=== PATIENT | female | born 1990 | race American Indian/Alaskan Native ===

== ENCOUNTER 2016-05-27 12:05 | Emergency (ER) | payer SELFPAY ==
--- NOTE | 2016-05-27 12:52 | Emergency Department Report ---
ED ENT HPI - General Chief complaint: Sore Throat Stated complaint: SORE THROAT Time Seen by Provider: 05/27/16 12:42 Source: patient Mode of arrival: Ambulatory Limitations: No Limitations - History of Present Illness MD complaint: tooth pain, ear pain, difficulty swallowing -: Gradual (today) Location: L ear, throat Severity: moderate Severity scale (0 -10): 4 Quality: burning Worsens with: swallowing Associated Symptoms: fever, pain with swallowing, sore throat, other (nausea) - Related Data Home Medications Medication Instructions Recorded Confirmed Last Taken No Known Home Medications [No 08/20/15 08/20/15 Unknown Reported Home Medications] Allergies Allergy/AdvReac Type Severity Reaction Status Date / Time No Known Allergies Allergy Verified 11/04/12 20:17 ED Dental HPI - General Chief complaint: Sore Throat Stated complaint: SORE THROAT Time Seen by Provider: 05/27/16 12:42 Source: patient Mode of arrival: Ambulatory Limitations: No Limitations - History of Present Illness complaint: sore throat, ear pain, difficulty swallowing -: Gradual, This afternoon Severity: moderate Quality: burning Worsens with: swallowing Dental Associated Symptons: Yes: Headache, Earache, Sore Throat - Related Data Home Medications Medication Instructions Recorded Confirmed Last Taken No Known Home Medications [No 08/20/15 08/20/15 Unknown Reported Home Medications] Allergies Allergy/AdvReac Type Severity Reaction Status Date / Time No Known Allergies Allergy Verified 11/04/12 20:17 ED Review of Systems ROS: Stated complaint: SORE THROAT Other details as noted in HPI Constitutional: chills, fever. denies: malaise Eyes: denies: eye pain, eye discharge ENT: as per HPI, ear pain, throat pain Respiratory: denies: cough, orthopnea, shortness of breath, SOB with exertion Cardiovascular: denies: chest pain, palpitations, syncope Gastrointestinal: nausea. denies: abdominal pain, vomiting, diarrhea Genitourinary: denies: urgency, dysuria, frequency, hematuria, discharge Musculoskeletal: denies: back pain, arthralgia Skin: denies: rash, lesions Neurological: headache. denies: weakness, numbness, paresthesias, confusion ED Past Medical Hx - Past Medical History Previous Medical History?: Yes Hx Hypertension: No Hx Congestive Heart Failure: No Hx Diabetes: No Hx Deep Vein Thrombosis: No Hx Renal Disease: No Hx Sickle Cell Disease: No Hx Headaches / Migraines: Yes (x1yr) Hx Seizures: No Hx Asthma: No Hx COPD: No Hx HIV: No Additional medical history: abnormal menses - Surgical History Past Surgical History?: No - Social History Smoking Status: Never Smoker Substance Use Type: None - Medications Home Medications: Home Medications Medication Instructions Recorded Confirmed Last Taken Type No Known Home Medications [No 08/20/15 08/20/15 Unknown History Reported Home Medications] ED Physical Exam - General Limitations: No Limitations General appearance: alert, in no apparent distress - Head Head exam: Present: atraumatic, normocephalic - Eye Eye exam: Present: normal appearance, PERRL, EOMI - Expanded ENT Exam Expanded Mouth exam: Absent: trismus, muffled voice Throat exam: Positive: tonsillar erythema, tonsillar exudate. Negative: R peritonsillar mass, L peritonsillar mass - Neck Neck exam: Present: full ROM, lymphadenopathy. Absent: tenderness, meningismus - Respiratory Respiratory exam: Present: normal lung sounds bilaterally. Absent: respiratory distress, wheezes, rales, rhonchi - Cardiovascular Cardiovascular Exam: Present: regular rate - GI/Abdominal GI/Abdominal exam: Present: soft. Absent: distended, tenderness, guarding, rebound, rigid - Back Exam Back exam: Present: normal inspection. Absent: CVA tenderness (R), CVA tenderness (L) - Neurological Exam Neurological exam: Present: alert, oriented X3 - Skin Skin exam: Present: warm, dry, intact, normal color. Absent: rash ED Course Vital Signs 05/27/16 12:13 Temperature 98.4 F Pulse Rate 79 Respiratory 20 Rate Blood Pressure 134/83 O2 Sat by Pulse 99 Oximetry Critical care attestation.: If time is entered above; I have spent that time in minutes in the direct care of this critically ill patient, excluding procedure time. ED Disposition Clinical Impression: Exudative tonsillitis Disposition: DISCHARGED TO HOME OR SELFCARE Is pt being admited?: No Condition: Stable Instructions: Tonsillitis (ED) Forms: Work/School Release Form(ED)
[2016-05-27] MEDS ORDERED: MOTRIN PO ONE ×2 (13:06→13:12)
[2016-05-27 13:34] VITALS: BP 132/78
== END 2016-05-27 13:32 | disposition home or self-care (01) ==
LOC: ED 12:05
DX: J03.90 Acute tonsillitis, unspecified (principal); G43.909 Migraine, unspecified, not intractable, without status migrainosus
CPT/HCPCS: 87116; 87430; 99282

== ENCOUNTER 2018-03-30 14:20 | Emergency (ER) | payer MEDICAID ==
[2018-03-30 18:32] LABS: Bacteria,Urine 4+ /HPF (Negative); Bilirubin,Urine NEG (Negative); Blood,Urine SM (Negative); Color,Urine Amber (Yellow); Mucus,Urine 1+ /HPF; Urobilinogen,Urine < 2.0 mg/dL (<2.0)
[2018-03-30 18:33] LABS: WBC,Urine > 182.0 /HPF (0.0-6.0)
[2018-03-30 18:34] LABS: HCG Qualitative,Urine Negative (Negative)
[2018-03-30] MEDS ORDERED: XYLOCAINE 1% MPF 5 mL INFILTRATI ONE (20:35)
[2018-03-30] MEDS ORDERED: ROCEPHIN IM ONE (20:35)
--- NOTE | 2018-03-30 21:50 | Emergency Department Report ---
ED Female HPI - General Chief complaint: Urogenital-Female Stated complaint: FOOT PAIN/YEAST INFECTION Time Seen by Provider: 03/30/18 19:48 Source: patient Mode of arrival: Ambulatory Limitations: No Limitations - History of Present Illness Initial comments: This is a 27-year-old female nontoxic, well nourished in appearance, no acute signs of distress presents to the ED with c/o of dysuria and vaginal discharge x2 days. Patient also stated has pain to right foot status post ankle fracture 2 weeks. Patient stated had stitches placed and now believes its infected. Patient denies having a post-op follow with orthopedic doctor. Stated had ankle surgery with plates and screws placed. Patient stated she is not concerned about STD and does not need testing. Patient denies any vaginal bleeding, ulcers or lesions. Patient denies any back pain. Patient denies any pelvic or abdominal pain. Patient denies any nausea, vomiting, chest pain, shortness of breathe, fever, chills, headache, back pain, numbness, tingling, stiff neck. Patient denies any urinary symptoms. Patient denies any allergies or PMH. MD Complaint: vaginal discharge, dysuria -: days(s) (2) Radiation: non-radiating Severity: mild Quality: burning Consistency: constant Improves with: none Worsens with: urination Are you Now?: No Associated Symptoms: vaginal discharge, dysuria. denies: vaginal bleeding, ab dominal pain, nausea/vomiting, fever/chills, headaches, loss of appetite, hematuria, rash, seizure, shortness of breath, syncope, weakness - Related Data Sexually active: No Previous Rx's Medication Instructions Recorded Last Taken Type Ibuprofen [Motrin] 800 mg PO Q8HR PRN #20 tablet 05/27/16 Unknown Rx RX: Amoxicillin [Amoxicillin TAB] 875 mg PO BID #20 tablet 05/27/16 Unknown Rx RX: metroNIDAZOLE [Flagyl TAB] 500 mg PO Q12HR #10 tab 01/18/18 Unknown Rx metroNIDAZOLE [Metronidazole] 500 mg PO BID #14 tablet 02/18/18 Unknown Rx Sulfamethoxazole/Trimethoprim 1 each PO BID #14 tablet 03/30/18 Unknown Rx [Bactrim DS TAB] metroNIDAZOLE [Flagyl] 500 mg PO Q12HR #14 tab 03/30/18 Unknown Rx Allergies Allergy/AdvReac Type Severity Reaction Status Date / Time No Known Allergies Allergy Verified 01/18/18 10:36 ED Review of Systems ROS: Stated complaint: FOOT PAIN/YEAST INFECTION Other details as noted in HPI Constitutional: denies: chills, fever Eyes: denies: eye pain, eye discharge, vision change ENT: denies: ear pain, throat pain Respiratory: denies: cough, shortness of breath, wheezing Cardiovascular: denies: chest pain, palpitations Endocrine: no symptoms reported Gastrointestinal: denies: abdominal pain, nausea, diarrhea Genitourinary: dysuria, discharge. denies: urgency Musculoskeletal: denies: back pain, joint swelling, arthralgia Skin: denies: rash, lesions Neurological: denies: headache, weakness, paresthesias Psychiatric: denies: anxiety, depression Hematological/Lymphatic: denies: easy bleeding, easy bruising ED Past Medical Hx - Past Medical History Hx Hypertension: No Hx Congestive Heart Failure: No Hx Diabetes: No Hx Deep Vein Thrombosis: No Hx Renal Disease: No Hx Sickle Cell Disease: No Hx Headaches / Migraines: Yes (x1yr) Hx Seizures: No Hx Asthma: No Hx COPD: No Hx HIV: No Additional medical history: abnormal menses - Social History Smoking Status: Never Smoker Substance Use Type: None - Medications Home Medications: Home Medications Medication Instructions Recorded Confirmed Last Taken Type Ibuprofen [Motrin] 800 mg PO Q8HR PRN #20 tablet 05/27/16 Unknown Rx RX: Amoxicillin [Amoxicillin TAB] 875 mg PO BID #20 tablet 05/27/16 Unknown Rx RX: metroNIDAZOLE [Flagyl TAB] 500 mg PO Q12HR #10 tab 01/18/18 Unknown Rx metroNIDAZOLE [Metronidazole] 500 mg PO BID #14 tablet 02/18/18 Unknown Rx Sulfamethoxazole/Trimethoprim 1 each PO BID #14 tablet 03/30/18 Unknown Rx [Bactrim DS TAB] metroNIDAZOLE [Flagyl] 500 mg PO Q12HR #14 tab 03/30/18 Unknown Rx ED Physical Exam - General Limitations: No Limitations General appearance: alert, in no apparent distress - Head Head exam: Present: atraumatic, normocephalic - Neck Neck exam: Present: normal inspection, full ROM - Respiratory Respiratory exam: Present: normal lung sounds bilaterally. Absent: respiratory distress, wheezes, rales, rhonchi, stridor, chest wall tenderness, accessory muscle use, decreased breath sounds, prolonged expiratory - Cardiovascular Cardiovascular Exam: Present: regular rate, normal rhythm, normal heart sounds. Absent: irregular rhythm, systolic murmur, diastolic murmur, rubs, gallop - GI/Abdominal GI/Abdominal exam: Present: soft, normal bowel sounds. Absent: distended, tenderness, guarding, rebound, rigid, diminished bowel sounds - External exam: Present: normal external exam, other (health care analyst Dariela LENNON present during exam). Absent: erythema, swelling, lesions, lacerations, ecchymosis, bleeding Speculum exam: Present: cervical discharge, other (health care analyst Dariela LENNON present during exam). Absent: erythema, vaginal discharge, vaginal bleeding, foreign body, tissue, laceration Bi-manual exam: Present: normal bi-manual exam, other (health care analyst Dariela RN present during exam). Absent: cervical motion tendernes, adnexal tenderness, adnexal mass, uterine enlargement, uterine tenderness - Extremities Exam Extremities exam: Present: normal inspection, full ROM, tenderness, normal capillary refill. Absent: joint swelling - Expanded Lower Extremity Exam Right Hip exam: Present: normal inspection, full ROM. Absent: tenderness Upper Leg exam: Present: normal inspection, full ROM. Absent: tenderness Knee exam: Present: normal inspection, full ROM. Absent: tenderness Lower Leg exam: Present: normal inspection, full ROM. Absent: tenderness Ankle exam: Present: normal inspection, full ROM, tenderness. Absent: swelling, laceration, ecchymosis, deformity, crepidus, dislocation, erythema, anterior draw sign Foot/Toe exam: Present: normal inspection, full ROM. Absent: tenderness Neuro vascular tendon exam: Present: no vascular compromise Gait: Positive: unable to bear weight 1 - well healing post surgical with no surrounding cellulitis, swelling, pus or drainage. - Back Exam Back exam: Present: normal inspection, full ROM - Neurological Exam Neurological exam: Present: alert, oriented X3 - Psychiatric Psychiatric exam: Present: normal affect, normal mood - Skin Skin exam: Present: warm, dry, intact, normal color. Absent: rash ED Course Vital Signs 03/30/18 17:20 Temperature 97.8 F Pulse Rate 103 H Blood Pressure 99/53 O2 Sat by Pulse 98 Oximetry - Reevaluation(s) Reevaluation #1: 03/30/18 21:50 Patient is speaking in full sentences with no signs of distress noted. ED Medical Decision Making - Medical Decision Making This is a 27-year-old female that presents with UTI, Trichomonas and BV. Patient is stable and was examined by me. UA obtained. Patient does not have any CVA tenderness. No signs or symptoms of pyelonephritis. Patient received Rocephin 1G in the ED. Patient is discharged with Bactrim. I also removed the splint to evalaute for a celluitits or abscess due to patient having the splint in for 2 weeks with no suture removal or follow-up. Exam within normal limits. A new post short leg splint has been placed after examination. Post splint assessment: neurovasular intact; normal cap refill <2 second; normal sensation; denies decreaed sensation; normal ROM of digits. Patient was instructed to Follow-up with a primary care doctor in 3-5 days or if symptoms worsen and continue return to emergency room as soon as possible. At time of discharge, the patient does not seem toxic or ill in appearance. No acute signs of distress noted. Patient agrees to discharge treatment plan of care. No further questions noted by the patient. Critical care attestation.: If time is entered above; I have spent that time in minutes in the direct care of this critically ill patient, excluding procedure time. ED Disposition Clinical Impression: Trichomonas contact, Bacterial vaginosis UTI (urinary tract infection) Qualifiers: Urinary tract infection type: acute cystitis Hematuria presence: with hematuria Qualified Code(s): N30.01 - Acute cystitis with hematuria Right ankle pain Qualifiers: Chronicity: unspecified Qualified Code(s): M25.571 - Pain in right ankle and joints of right foot Disposition: DC-01 TO HOME OR SELFCARE Is pt being admited?: No Does the pt Need Aspirin: No Condition: Stable Instructions: Metronidazole (By mouth), Bacterial Vaginosis (ED), Trichomoniasis (ED) Additional Instructions: Follow-up with a primary care/orthopedic doctor in 3-5 days or if symptoms worsen and continue return to emergency room as soon as possible. Prescriptions: metroNIDAZOLE [Flagyl] 500 mg PO Q12HR #14 tab Sulfamethoxazole/Trimethoprim [Bactrim DS TAB] 1 each PO BID #14 tablet Referrals: PRIMARY CAREMD [Referring] - 3-5 Days ESME JACOME MD [Staff Physician] - 3-5 Days [facility] [Outside] - 3-5 Days [facility] [Outside] - 3-5 Days Forms: Work/School Release Form(ED)
[2018-03-30] MEDS ORDERED: ULTRAM PO ONE (22:49)
[2018-03-30 22:56] VITALS: BP 97/59
== END 2018-03-30 22:59 | disposition home or self-care (01) ==
LOC: ED 14:20
DX: N76.0 Acute vaginitis (principal); B96.89 Other specified bacterial agents as the cause of diseases classified elsewhere; A59.01 Trichomonal vulvovaginitis; N30.01 Acute cystitis with hematuria; M25.571 Pain in right ankle and joints of right foot; G43.909 Migraine, unspecified, not intractable, without status migrainosus; Z79.899 Other long term (current) drug therapy
CPT/HCPCS: 29515; 81001; 81025; 87210; 96372; 99283; J0696

== ENCOUNTER 2018-04-12 11:14 | Outpatient (CLI) | payer MEDICAID ==
--- NOTE | 2018-04-12 12:01 | XRay Report ---
RIGHT ANKLE, 3 views: History: right ankle pain. No comparison at this facility. There is severe diffuse soft tissue swelling. There has been recent internal fixation of a medial malleolus fracture with 2 metal screws. Fracture lines through the base of the medial malleolus are still visualized but in good alignment. There is also a second fracture or complex osteochondral defect involving the postero-lateral talar dome which is best demonstrated on the AP image and the oblique image. There appear to be a few small intra-articular fragments in the lateral joint space. The distal fibula and remainder of the hindfoot are intact. IMPRESSION: Internally fixated medial malleolus fracture in good alignment. Fracture or osteochondral defect involving the posterior lateral talar dome. Please see above. Consider further evaluation with CT if needed. Soft tissue swelling.
== END 2018-04-12 11:15 | disposition home or self-care (01) ==
LOC: XRAY 11:14
PROVIDERS: ATTEND Orthopaedic Surgery
DX: S82.51XA Displaced fracture of medial malleolus of right tibia, initial encounter for closed fracture (principal); M79.9 Soft tissue disorder, unspecified; X58.XXXA Exposure to other specified factors, initial encounter; Y93.89 Activity, other specified; Y92.89 Other specified places as the place of occurrence of the external cause; Y99.8 Other external cause status

== ENCOUNTER 2018-05-02 12:31 | Outpatient (CLI) | payer MEDICAID ==
--- NOTE | 2018-05-02 13:58 | XRay Report ---
RIGHT ANKLE, 3 views: History: Right ankle pain. No significant change is demonstrated since 04/12/18. The internally fixated medial malleolus fracture is unchanged in position and alignment. The distal fibula is intact. Subtle cortical defect in the posterior lateral talar dome is again noted on the oblique image. The remainder of the hindfoot is intact. There is diffuse soft tissue swelling. IMPRESSION: Stable appearance of the medial malleolus fracture. Fracture or osteochondral defect of the posterior lateral talar dome, unchanged. Soft tissue swelling. No obvious change since 04/12/18.
== END 2018-05-02 12:32 | disposition home or self-care (01) ==
LOC: XRAY 12:31
PROVIDERS: ATTEND Orthopaedic Surgery
DX: M25.571 Pain in right ankle and joints of right foot (principal); M79.89 Other specified soft tissue disorders

== ENCOUNTER 2018-05-02 13:22 | Emergency (ER) | payer MEDICAID ==
--- NOTE | 2018-05-02 13:29 | Emergency Department Report ---
Blank Doc - Documentation Documentation: This is a 27-year-old female that presents with UTI symptoms and vaginal disch arge. This initial assessment/diagnostic orders/clinical plan/treatment(s) is/are subject to change based on patient's health status, clinical progression and re- assessment by fellow clinical providers in the ED. Further treatment and workup at subsequent clinical providers discretion. Patient/guardians urged not to elope from the ED as their condition may be serious if not clinically assessed and managed. Initial orders include: 1- Patient sent to [facility] for further evaluation and treatment 2- UA 3- wet prep-GC
[2018-05-02 13:33] VITALS: BP 99/62
[2018-05-02 14:49] LABS: Bacteria,Urine 1+ /HPF (Negative); Bilirubin,Urine NEG (Negative); Blood,Urine NEG (Negative); Color,Urine Yellow (Yellow); Mucus,Urine 2+ /HPF; Urobilinogen,Urine < 2.0 mg/dL (<2.0)
[2018-05-02] MEDS ORDERED: ZITHROMAX PO ONE (16:35)
[2018-05-02] MEDS ORDERED: XYLOCAINE 1% MPF 5 mL INFILTRATI ONE (16:35)
[2018-05-02] MEDS ORDERED: FLAGYL PO ONE (16:35)
[2018-05-02] MEDS ORDERED: ROCEPHIN IM ONE (16:35)
[2018-05-02] MEDS ORDERED: NORCO 5/325 PO ONE (16:36)
--- NOTE | 2018-05-02 17:04 | Emergency Department Report ---
ED Female HPI - General Chief complaint: Urogenital-Female Stated complaint: VAG DISCHARGE/RASH PAIN Time Seen by Provider: 05/02/18 13:26 Source: patient Mode of arrival: Ambulatory Limitations: No Limitations - History of Present Illness Initial comments: Patient is a 27-year-old left neck a female who is presenting with vaginal discharge and dysuria for the past 2 days. Patient has been treated several months ago for Trichomonas. Patient denies fevers chills nausea vomiting diarrhea or abdominal pain at this time. Patient does state that there is a intense burning sensation with urination. - Related Data Previous Rx's Medication Instructions Recorded Last Taken Type Amoxicillin [Amoxicillin TAB] 875 mg PO BID #20 tablet 05/27/16 Unknown Rx Ibuprofen [Motrin] 800 mg PO Q8HR PRN #20 tablet 05/27/16 Unknown Rx metroNIDAZOLE [Flagyl TAB] 500 mg PO Q12HR #10 tab 01/18/18 Unknown Rx metroNIDAZOLE [Metronidazole] 500 mg PO BID #14 tablet 02/18/18 Unknown Rx Acetaminophen/Codeine [Tylenol 1 tab PO Q6H PRN #12 tab 03/30/18 Unknown Rx /Codeine # 3 tab] Ibuprofen 800 mg PO TID PRN #30 tablet 03/30/18 Unknown Rx Sulfamethoxazole/Trimethoprim 1 each PO BID #14 tablet 03/30/18 Unknown Rx [Bactrim DS TAB] metroNIDAZOLE [Flagyl] 500 mg PO Q12HR #14 tab 03/30/18 Unknown Rx Doxycycline [Vibramycin CAP] 100 mg PO Q12HR #14 capsule 05/02/18 Unknown Rx HYDROcodone/APAP 5-325 [[place] 1 each PO Q4HR PRN #12 tablet 05/02/18 Unknown Rx 5/325] Allergies Allergy/AdvReac Type Severity Reaction Status Date / Time No Known Allergies Allergy Verified 05/02/18 13:27 ED Review of Systems ROS: Stated complaint: VAG DISCHARGE/RASH PAIN Other details as noted in HPI Comment: All other systems reviewed and negative ED Past Medical Hx - Past Medical History Previous Medical History?: Yes Hx Hypertension: No Hx Congestive Heart Failure: No Hx Diabetes: No Hx Deep Vein Thrombosis: No Hx Renal Disease: No Hx Sickle Cell Disease: No Hx Headaches / Migraines: Yes (x1yr) Hx Seizures: No Hx Asthma: No Hx COPD: No Hx HIV: No Additional medical history: abnormal menses - Surgical History Past Surgical History?: No - Social History Smoking Status: Never Smoker Substance Use Type: None - Medications Home Medications: Home Medications Medication Instructions Recorded Confirmed Last Taken Type Amoxicillin [Amoxicillin TAB] 875 mg PO BID #20 tablet 05/27/16 Unknown Rx Ibuprofen [Motrin] 800 mg PO Q8HR PRN #20 tablet 05/27/16 Unknown Rx metroNIDAZOLE [Flagyl TAB] 500 mg PO Q12HR #10 tab 01/18/18 Unknown Rx metroNIDAZOLE [Metronidazole] 500 mg PO BID #14 tablet 02/18/18 Unknown Rx Acetaminophen/Codeine [Tylenol 1 tab PO Q6H PRN #12 tab 03/30/18 Unknown Rx /Codeine # 3 tab] Ibuprofen 800 mg PO TID PRN #30 tablet 03/30/18 Unknown Rx Sulfamethoxazole/Trimethoprim 1 each PO BID #14 tablet 03/30/18 Unknown Rx [Bactrim DS TAB] metroNIDAZOLE [Flagyl] 500 mg PO Q12HR #14 tab 03/30/18 Unknown Rx Doxycycline [Vibramycin CAP] 100 mg PO Q12HR #14 capsule 05/02/18 Unknown Rx HYDROcodone/APAP 5-325 [[place] 1 each PO Q4HR PRN #12 tablet 05/02/18 Unknown Rx 5/325] ED Physical Exam - General Limitations: No Limitations General appearance: alert, in no apparent distress - Head Head exam: Present: atraumatic, normocephalic - Eye Eye exam: Present: normal appearance - ENT ENT exam: Present: mucous membranes moist - Neck Neck exam: Present: normal inspection - Respiratory Respiratory exam: Present: normal lung sounds bilaterally. Absent: respiratory distress, wheezes, rales, rhonchi - Cardiovascular Cardiovascular Exam: Present: regular rate, normal rhythm. Absent: systolic murmur, diastolic murmur, rubs, gallop - GI/Abdominal GI/Abdominal exam: Present: soft, normal bowel sounds. Absent: distended, tenderness, guarding, rebound, rigid - External exam: Present: normal external exam Speculum exam: Present: vaginal discharge (copious amounts of thick off-white discharge with a frothy texture), cervical discharge. Absent: vaginal bleeding Bi-manual exam: Present: cervical motion tendernes (mild) - Extremities Exam Extremities exam: Present: normal inspection - Back Exam Back exam: Present: normal inspection - Neurological Exam Neurological exam: Present: alert, oriented X3 - Psychiatric Psychiatric exam: Present: normal affect, normal mood - Skin Skin exam: Present: warm, dry, intact, normal color. Absent: rash ED Course Vital Signs 05/02/18 13:31 Temperature 98.1 F Pulse Rate 92 H Respiratory 18 Rate Blood Pressure 99/62 O2 Sat by Pulse 98 Oximetry ED Medical Decision Making - Lab Data Lab Results 05/02/18 Range/Units 14:09 Urine Color Yellow (Yellow) Urine Turbidity Slightly-cloudy (Clear) Urine pH 5.0 (5.0-7.0) Ur Specific [place] 1.027 (1.003-1.030) Urine Protein 30 mg/dl (Negative) mg/dL Urine Glucose (UA) Neg (Negative) mg/dL Urine Ketones Neg (Negative) mg/dL Urine Blood Neg (Negative) Urine Nitrite Neg (Negative) Urine Bilirubin Neg (Negative) Urine Urobilinogen < 2.0 (<2.0) mg/dL Ur Leukocyte Esterase Lg (Negative) Urine WBC (Auto) 8.0 H (0.0-6.0) /HPF Urine RBC (Auto) 22.0 (0.0-6.0) /HPF U Epithel Cells (Auto) 10.0 (0-13.0) /HPF Urine Bacteria (Auto) 1+ (Negative) /HPF Urine Mucus 2+ /HPF - Medical Decision Making Patient is a 27-year-old female with copious amounts of thick discharge. Patient will have samples sent to the lab for gonorrhea chlamydia and wet prep however patient will be empirically treated for gonorrhea Chlamydia and Trichomonas. Patient also sent home with Doxycycline as well since she does have some mild CMT. Critical care attestation.: If time is entered above; I have spent that time in minutes in the direct care of this critically ill patient, excluding procedure time. ED Disposition Clinical Impression: PID (acute pelvic inflammatory disease) Disposition: DC-01 TO HOME OR SELFCARE Is pt being admited?: No Does the pt Need Aspirin: No Condition: Stable Instructions: Pelvic Inflammatory Disease (ED) Referrals: SINCERE FLYNN MD [Staff Physician] - 3-5 Days Time of Disposition: 17:06
== END 2018-05-02 17:10 | disposition home or self-care (01) ==
LOC: ED 13:22
DX: N73.9 Female pelvic inflammatory disease, unspecified (principal); G43.909 Migraine, unspecified, not intractable, without status migrainosus; Z79.899 Other long term (current) drug therapy
CPT/HCPCS: 81001; 87210; 87591; 96372; 99284; J0696